=== PATIENT | male | born 1985 | race Caucasian/White ===

== ENCOUNTER 2021-05-21 09:22 | Emergency (ER) | payer OTHER ==
[~2021-05-21] VITALS: Ht 175.3 cm; Wt 71.6 kg
[2021-05-21 09:45] LABS: ABSOLUTE BASOPHILS 0.1 thou/uL (0.0-0.2); ABSOLUTE EOSINOPHILS 0.1 thou/uL (0.0-0.7); ABSOLUTE LYMPHOCYTES 1.5 thou/uL (0.8-5.3); ABSOLUTE MONOCYTES 0.6 thou/uL (0.0-1.2); ABSOLUTE NEUTROPHILS 5.4 thou/uL (1.6-8.1); HEMATOCRIT 36.2 % (42.0-52.0); HEMOGLOBIN 12.9 gm/dL (14.0-18.0); LYMPHOCYTES 19.9 %; MCH 29.2 pg (26.0-34.0); MCHC 35.7 g/dL (28.0-37.0); MCV 81.8 fL (80.0-100.0); MONOCYTES 7.3 %; MPV 6.6 fl. (7.2-11.1); NUCLEATED RBCS 0 /100WBC; PLATELET COUNT* 299 thou/uL (150-400); POLYS 70.8 %; RBC 4.42 mil/uL (4.50-6.00); RDW-CV 13.7 % (10.5-14.5); WBC 7.6 thou/uL (4.0-11.0)
[2021-05-21 09:46] LABS: BE 2.3 mmol/L (-2 to +3); PCO2 VENOUS 47.5 mmHg (41.0-51.0); PO2 VENOUS 47.6 mmHg (35.0-45.0)
[2021-05-21 09:55] LABS: CALCIUM 9.1 mg/dL (8.5-10.1); CREATININE 1.1 mg/dL (0.6-1.3)
[2021-05-21 09:57] LABS: AMP/METHAMP POSITIVE (Negative); BARBITURATES Negative (Negative); BENZODIAZEPINES Negative (Negative); COCAINE Negative (Negative); METHADONE Negative (Negative); OPIATES Negative (Negative); PCP Negative (Negative); THC Negative (Negative)
[2021-05-21 10:00] LABS: ALBUMIN 4.1 g/dL (3.4-5.0); TOTAL BILIRUBIN 0.8 mg/dL (<0.1-1.0); TOTAL PROTEIN 7.2 g/dL (6.4-8.2)
[2021-05-21 11:53] LABS: ICTOTEST (BILI CONFIRMATORY) Negative (Negative); URINE BILIRUBIN 1+ (Negative); URINE BLOOD NEGATIVE (Negative); URINE CLARITY CLEAR; URINE COLOR YELLOW; URINE GLUCOSE-RANDOM NEGATIVE (Negative); URINE KETONES TRACE (Negative); URINE LEUKOCYTES NEGATIVE (Negative); URINE NITRITE NEGATIVE (Negative); URINE PROTEIN NEGATIVE (Negative); URINE SPECIFIC GRAVITY >= 1.030 (1.005-1.030); URINE UROBILINOGEN 0.2 E.U./dl (0.2-1.0)
--- NOTE | 2021-05-21 12:25 | EKG ---
[place] [address] ELECTROCARDIOGRAM REPORT Name: BRAD MONTANEZ Room: [facility]#: [id number] Admission: 05/21/21 Attend Phys: Discharge: Date of : 81 Date of Service: 05/21/21 1008 Report #: [id number] THIS REPORT FOR: //name// [facility] ED Test Date: 2021-05-21 Test Time: 10:08:27 Pat Name: BRAD MONTANEZ Department: Room: Gender: Chief Strategy Officer: [facility] [place] : 1985 Requested By: Merritt Maurer Order Number: [id number] MD: Casey Clancy Measurements Intervals [place] Rate: 83 P: 59 [place]: 147 QRS: 52 QRSD: 84 T: 55 QT: 520 QTc: 612 Interpretive Statements Sinus rhythm Borderline repolarization abnormality Prolonged QT interval Baseline wander in lead(s) V2 No previous ECG available for comparison Electronically Signed On 05-21-2021 12:25:08 CDT by Casey Clancy [email or web address] <ELECTRONICALLY SIGNED> By: Casey Clancy MD, [facility] 05/21/21 1225 1008 1008 Casey Clancy MD, [facility] /EPI
[2021-05-21 17:32] VITALS: BP 112/70
== END 2021-05-21 17:33 | disposition home or self-care (01) ==
LOC: M.ERS 09:22
PROVIDERS: Emergency Medicine
DX: F15.921 Other stimulant use, unspecified with intoxication delirium (principal)